=== PATIENT | male | born 1985 | race Caucasian/White ===

== ENCOUNTER 2018-02-21 18:20 | Emergency (ER) | payer OTHER ==
[2018-02-21] MEDS: predniSONE 20 MG TAB PO (19:16)
== END 2018-02-21 19:22 | disposition home or self-care (01) ==
LOC: M ED 18:20
DX: L23.7 Allergic contact dermatitis due to plants, except food (principal)
CPT/HCPCS: 99283

== ENCOUNTER 2019-03-07 19:37 | Emergency (ER) | payer OTHER ==
[~2019-03-07] VITALS: Ht 180.3 cm; Wt 111.2 kg
[~2019-03-07 19:37] MED LIST: CEPH500C PO; PRED20TA PO
[2019-03-07 19:38] VITALS: BP 128/66
[2019-03-07 21:40] LABS: HEMATOCRIT 43.1 % (42.0-52.0); HEMOGLOBIN 14.6 g/dl (13.5-17.5); MEAN CORPUSCULAR HEMOGLOBIN 29.9 pg (27.0-33.0); MEAN CORPUSCULAR HGB CONC 33.9 g/dl (32.0-36.5); MEAN CORPUSCULAR VOLUME 88.3 fl (80.0-96.0); PLATELET COUNT, AUTOMATED 223 10^3/uL (150-450); RED BLOOD COUNT 4.88 10^6/uL (4.30-6.10)
[2019-03-07 21:52] LABS: INR 1.2; PARTIAL THROMBOPLASTIN TIME 29.7 SECONDS (25.0-38.4); PROTHROMBIN TIME 14.9 SECONDS (11.8-14.0)
[2019-03-07] MEDS ORDERED: HM S0.65 NARES (22:26)
[2019-03-07] MEDS ORDERED: OXYMETAZOLINE NASAL SPRAY (AFRIN) ONE (22:30)
== END 2019-03-07 22:41 | disposition home or self-care (01) ==
LOC: M ED 19:37
DX: R04.0 Epistaxis (principal); Z79.899 Other long term (current) drug therapy

== ENCOUNTER 2019-04-27 08:57 | Emergency (ER) | payer OTHER ==
[~2019-04-27] VITALS: Ht 180.3 cm; Wt 109.1 kg
[~2019-04-27 08:57] MED LIST changes: +HM S0.65 NARES
[2019-04-27] MEDS ORDERED: PHENYLEPHRINE 0.5% NASAL SPRAY 15 ML ONE (09:45)
[2019-04-27 10:05] LABS: BASO # 0.1 10^3/uL (0.0-0.2); BASO % 0.5 % (0.0-1.0); EOS % 0.3 % (0.0-3.0); HEMATOCRIT 49.3 % (42.0-52.0); HEMOGLOBIN 15.7 g/dl (13.5-17.5); LYMPH % 6.6 % (24.0-44.0); MEAN CORPUSCULAR HEMOGLOBIN 29.1 pg (27.0-33.0); MEAN CORPUSCULAR HGB CONC 31.8 g/dl (32.0-36.5); MEAN CORPUSCULAR VOLUME 91.3 fl (80.0-96.0); MONO % 6.9 % (0.0-5.0); NEUTROPHILS # 12.4 10^3/uL (1.5-8.5); NEUTROPHILS % 85.3 % (36.0-66.0); PLATELET COUNT, AUTOMATED 321 10^3/uL (150-450); WHITE BLOOD COUNT 14.6 10^3/uL (4.0-10.0)
[2019-04-27 10:15] LABS: INR 1.11
[2019-04-27 10:16] LABS: PARTIAL THROMBOPLASTIN TIME 26.7 SECONDS (25.0-38.4)
[2019-04-27 10:29] LABS: ALBUMIN 3.6 GM/DL (3.2-5.2); BILIRUBIN,DIRECT 0.2 MG/DL (0.0-0.2); BILIRUBIN,TOTAL 0.4 MG/DL (0.2-1.0); TOTAL PROTEIN 6.6 GM/DL (6.4-8.2)
[2019-04-27 10:50] VITALS: BP 143/72
== END 2019-04-27 10:52 | disposition home or self-care (01) ==
LOC: M ED 08:57
DX: R04.0 Epistaxis (principal)